=== PATIENT | male | born 1980 ===

== ENCOUNTER 2016-11-08 08:02 | Emergency (ER) | payer MEDICAID | END 2016-11-08 09:38 | disposition T | LOC: EDMED 08:02 | DX: S63.619A Unspecified sprain of unspecified finger, initial encounter (principal); W01.0XXA Fall on same level from slipping, tripping and stumbling without subsequent striking against object, initial encounter; Y92.019 Unspecified place in single-family (private) house as the place of occurrence of the external cause ==